=== PATIENT | female | born 1970 | race Caucasian/White ===

== ENCOUNTER 2017-06-07 09:10 | Day surgery (SDC) | payer MEDICAID ==
[2017-06-06 13:48] LABS: BASOPHILS 0.5 % (0-2); EOSINOPHILS 3.4 % (0-7); HEMOGLOBIN 13.5 g/dL (12-16); IMMATURE GRANULOCYTES 0.2 % (0-5); LYMPHOCYTES 33.6 % (15-50); MCH 32.3 pg (26.0-34.0); MCHC 33.8 g/dL (31.0-37.0); MCV 95.7 fL (80.0-100.0); MEAN PLATELET VOLUME 9.4 fL (7.4-10.4); NEUTROPHILS 56.3 % (40-80); PLATELET COUNT 319 10x3/uL (130-400); RBC 4.18 10x6/uL (4.00-5.40); RDW 12.7 % (11.5-14.5); WBC 8.9 10x3/uL (4.8-10.8)
[2017-06-06 14:00] LABS: CALC OSMOLALITY 277 mosm/kg (275-300); CALCIUM 8.5 mg/dL (8.5-10.1); CARBON DIOXIDE 28.8 mmol/L (21.0-32.0); CHLORIDE - SERUM 102 mmol/L (98-107); CREATININE - SERUM 0.7 mg/dL (0.6-1.3); GLUCOSE 82 mg/dL (74-106); POTASSIUM - SERUM 3.9 mmol/L (3.5-5.1); SODIUM 140 mmol/L (136-145); UREA NITROGEN 12 mg/dL (7-18); eGFR NON AFRICAN AMERICAN > 90 mL/min (90-120)
[~2017-06-07] VITALS: Ht 162.6 cm; Wt 64.0 kg
--- NOTE | ~2017-06-07 | OP ---
PATIENT NAME: FRANCIS MO MEDICAL RECORD: [id number] :68 LOCATION:D.OPS ADMISSION DATE: SURGEON: ADELFO SIEGEL MD DATE OF OPERATION: 06/07/2017 PREOPERATIVE DIAGNOSES: 1. Bilateral neck cervical lymphadenopathy. 2. Tobacco dependence syndrome. 3. Peripheral vascular disease. POSTOPERATIVE DIAGNOSES: 1. Bilateral neck cervical lymphadenopathy. 2. Tobacco dependence syndrome. 3. Peripheral vascular disease. PROCEDURE IN DETAIL: Right neck cervical lymph node excisional biopsy. SURGEON: Adelfo Siegel MD REPORT OF PROCEDURE: The patient's neck was prepped and draped in sterile fashion. An oblique incision was made just posterior to the superior aspect of the sternocleidomastoid. Electrocautery was used to dissect through the subcutaneous tissues down behind the sternocleidomastoid. When I got to this plane, there were noted to be some enlarged lymph nodes. There was a cluster of about 2-3 lymph nodes, which were enlarged. These were excised from the surrounding tissue and sent off for permanent specimen. We assured there was no sign of any bleeding. The subcutaneous tissues were then reapproximated with interrupted 3-0 Vicryls and the skin was closed with running subcutaneous 5-0 Monocryl. A 7 mL of 0.25% Marcaine with epinephrine were infused into the surrounding tissues and the wound was dressed appropriately. COMPLICATIONS: None. CONDITION: Stable. ANESTHESIA: General endotracheal and local. BLOOD LOSS: Minimal. TRANSINT:[id number] Voice Confirmation ID: [id number] DOCUMENT ID: [id number] ADELFO SIEGEL MD CC: EDWAR MALHOTRA MD [id number] DICTATION DATE: 06/07/17 1213 LAN MANAGER: 06/07/179 [facility] 06/07/17 [facility] [address] [place] [address]
[~2017-06-07 09:10] MED LIST: BENADRYL25 MG PO; ULTRAM50 MG PO
[2017-06-07] MEDS ORDERED: IBUPROFEN200 MG PO (10:22)
[2017-06-07 10:35] VITALS: BP 115/71; Ht 162.6 cm; Wt 64.0 kg
[2017-06-07] MEDS ORDERED: HYDROCODON-ACE1 EAC7 PO (12:19)
--- NOTE | 2017-06-07 12:46 | NUR ---
BACK FROM RT NECK BX. RESP EVEN AND NONLABORED, BANDAID NO BLEEDING.NO COS OF PAIN OR NAUSEA.
== END 2017-06-07 13:40 | disposition home or self-care (01) ==
LOC: D.OPS 09:10 → D.PAN 11:30 → D.OPS 13:40
PROVIDERS: Surgery
DX: R59.0 Localized enlarged lymph nodes (principal); F17.200 Nicotine dependence, unspecified, uncomplicated; Z01.812 Encounter for preprocedural laboratory examination

== ENCOUNTER → 2020-04-26 14:06 | Outpatient (CLI) | payer OTHER ==
[2017-06-07 10:35] VITALS: BMI 24.2
--- NOTE | ~2020-04-26 | ST ---
PATIENT:FRANCIS MO MEDICAL RECORD: [id number] SEX: F LOCATION:[facility] ORDER #: ADMISSION DATE: 04/26/20 AGE OF PATIENT: 49 REFERRING PHYSICIAN: INTERPRETING PHYSICIAN: DENIS SHAW MD DATE OF SERVICE: 04/26/2020 PROCEDURE: Treadmill stress test. Baseline ECG is normal. Exercised for 10 minutes on Clinton protocol. Maximum heart rate 177 beats per minute, 100% max predicted. No ECG change of ischemia. No symptoms of ischemia. Normal blood pressure response to exercise. No arrhythmias noted. Good exercise tolerance for age. IMPRESSION: Negative treadmill stress test. Good exercise tolerance. TRANSINT:[id number] Voice Confirmation ID: [id number] DOCUMENT ID: [id number] DENIS SHAW MD CC: [id number] DICTATION DATE: 04/27/20837 HEMATOLOGY SUPERVISOR: 04/28/20 0531 DEP CLI 04/26/20 [id number] [place] [address]
--- NOTE | ~2020-04-26 | EC ---
PATIENT:FRANCIS MO DATE OF SERVICE: 04/26/20 SEX: F MEDICAL RECORD: [id number] DATE OF : 68 LOCATION:[facility] AGE OF PATIENT: 49 ADMISSION DATE: 04/26/20 REFERRING PHYSICIAN: INTERPRETING PHYSICIAN: DENIS SHAW MD ECHOCARDIOGRAM REPORT ECHO CHARGES 4 ECHO COMPLETE Date: 04/26/20 CLINICAL DIAGNOSIS: DEYSPNE/HEART MURMUR ECHOCARDIOGRAPHIC MEASUREMENTS (adult normal given) AC root (d.<3.7cm) 2.5 cm LV Septum d (<1.2 cm> 0.90 cm Valve Excursion 1.2 cm LV Septum (systole) 1.1 cm Left Atria (s.<4.0cm> 3.3 cm LVPW d(<1.2cm) 1.3 cm RV (d.<2.3cm) 2.7 cm LVPW (sytole) 1.4 cm LV diastole(<5.6CM) 3.1 cm MV E-F(>70mm/sec) cm LV systole 2.2 cm LVOT Diameter 1.7 cm MV exc.(>10mm) 1.0 cm Est.ejection fraction (50-75%) % DOPPLER: LVIT cm/sec A 84.0 cm/sec E 70.0 cm/sec LA cm/sec RVSP 18 mmHg LVOT 112 cm/sec AOP1/2T m/s Asc. Ao 113 cm/sec RVOT 74 cm/sec RA cm/sec PA 110 cm/sec AV Gradient Peak 5.07 mmHg AV Mean 2.53 mmHg AV Area 2.1 cm MV Gradient Peak 3.41 mmHg MV Mean 1.55 mmHg MV Area cm COMMENTS: Computer System Technician: 2 ZAHEER SERRANO Shift Manager: 3 Dr. Jim TAPE# PACS Pericardial Effusion N DATE OF SERVICE: Adequate 2D, color flow imaging, spectral Doppler, and M-Mode. No LVH. LV internal dimension is normal. Wall motion is normal. EF greater than or equal to 55%. Aortic valve is tricuspid. No evidence of stenosis by Doppler interrogation. Left atrium is normal. Mitral valve shows no prolapse. Trace MR. Right-sided chambers are grossly normal. Trace TR. TRANSINT:[id number] Voice Confirmation ID: [id number] DOCUMENT ID: [id number] ECHOCARDIOGRAM REPORT [id number] FRANCIS MO GREGORY A MD CC: [id number] DICTATION DATE: 04/27/20 0841 CEMENT CONTRACTOR: 04/27/20 1250 DEP CLI 04/26/20 [id number] [place] [address]
[~2020-04-26 14:06] MED LIST changes: +HYDROCODON-ACE1 EAC7 PO; +IBUPROFEN200 MG PO
== END | disposition home or self-care (01) ==
LOC: D.HCCARDIO 13:30
PROVIDERS: ATTEND Internal Medicine Interventional Cardiology
DX: R07.9 Chest pain, unspecified (principal); R06.00 Dyspnea, unspecified